=== PATIENT | male | born 1990 ===

== ENCOUNTER → 2022-02-18 | Outpatient (CLI) | payer OTHER ==
--- NOTE | 2022-02-18 15:09 | XR ---
EXAMINATION TYPE: XR hand complete RT DATE OF EXAM: 02/18/2022 CLINICAL HISTORY: Contusion injury with pain TECHNIQUE: Frontal, lateral and oblique images of the right hand are obtained. COMPARISON: None. FINDINGS: There is no acute fracture/dislocation evident in the right hand. The joint spaces in the right hand appear within normal limits. The overlying soft tissue appears unremarkable. IMPRESSION: There is no acute fracture or dislocation in the right hand.
== END | disposition home or self-care (01) ==
LOC: RADXRMAIN 14:41
PROVIDERS: ATTEND Emergency Medicine
DX: S60.221A Contusion of right hand, initial encounter (principal)

== ENCOUNTER → 2022-02-25 | Outpatient (CLI) | payer OTHER ==
--- NOTE | 2022-02-25 15:03 | XR ---
Right hand HISTORY: Trauma and pain 3 views of the right hand correlated prior exam 02/18/2022 There is no significant interval change. Bone mineralization, joint spaces and alignment are stable. Soft tissue swelling is noted. IMPRESSION: Stable exam. No fracture or dislocation is evident.
== END | disposition home or self-care (01) ==
LOC: RADXRMAIN 14:21
PROVIDERS: ATTEND Emergency Medicine
DX: S60.221A Contusion of right hand, initial encounter (principal)